=== PATIENT | female | born 1955 | race Caucasian/White ===

== ENCOUNTER → 2020-03-29 | Outpatient (CLI) | payer OTHER | END | disposition home or self-care (01) | LOC: TOM 07:15 | PROVIDERS: ATTEND Internal Medicine Gastroenterology | DX: Z98.890 Other specified postprocedural states (principal); N63.42 Unspecified lump in left breast, subareolar ==

== ENCOUNTER 2020-06-18 07:43 | Day surgery (SDC) | payer OTHER | END 2020-06-18 12:06 | disposition home or self-care (01) | LOC: AMB-ENDOS 07:43 | PROVIDERS: ATTEND Surgery | DX: K62.89 Other specified diseases of anus and rectum (principal); Z20.828 Contact with and (suspected) exposure to other viral communicable diseases ==

== ENCOUNTER 2020-08-07 08:30 | Inpatient (IN) | payer OTHER ==
[~2020-08-07] VITALS: Ht 157.5 cm; Wt 63.5 kg
[2020-08-07] MEDS ORDERED: NORVASC2.5 MG PO (12:42)
[2020-08-07] MEDS ORDERED: LYRICA100 MG PO (12:42)
[2020-08-07] MEDS ORDERED: ECOTRIN81 MG PO (12:43)
[2020-08-07] MEDS ORDERED: AMBIEN PO (12:43)
[2020-08-07] MEDS ORDERED: [UNRECOGNIZED DRUG - OTHER] (12:44)
[2020-08-14] MEDS ORDERED: LOSARTAN POTASS25 MG (08:34)
[2020-08-14] MEDS ORDERED: AMBIEN5 MG (08:37)
[2020-08-14] MEDS ORDERED: SYSTANE GEL EYE10 ML (08:38)
[2020-08-14] MEDS ORDERED: SYSTANE 0.3-0.1 EACH (08:39)
[2020-08-17] MEDS ORDERED: PERCOCET 5-3251 EACH PO (14:37)
[2020-08-17] MEDS ORDERED: PRILOSEC10 MG PO (14:38)
== END 2020-08-17 16:05 | disposition home or self-care (01) | DRG 331 ==
LOC: SURH 08:30 → SURG 08-14 05:58 → O/R 08-14 05:58 → SURH 08-14 08:30 → SURG 08-14 10:48
PROVIDERS: ADMIT Surgery; ATTEND Surgery
PROC: 07BC4ZX Excision of Pelvis Lymphatic, Percutaneous Endoscopic Approach, Diagnostic (ICD-10-PCS; 2020-08-14)
PROC: 0DTF4ZZ Resection of Right Large Intestine, Percutaneous Endoscopic Approach (ICD-10-PCS; principal; 2020-08-14 17:30)
DX: C18.2 Malignant neoplasm of ascending colon (principal); E78.00 Pure hypercholesterolemia, unspecified